=== PATIENT | female | born 1945 | race Caucasian/White ===

== ENCOUNTER 2017-02-24 15:58 | Emergency (ER) | payer MEDICARE, OTHER ==
[~2017-02-24] VITALS: Ht 160 cm; Wt 84.0 kg
[2017-02-24 16:05] VITALS: BP 142/81; PULSE 62; RESP 15; TEMP 98.1; O2SAT 97
[2017-02-24] MEDS ORDERED: SODI325T PO (16:23)
[2017-02-24] MEDS ORDERED: COZA25TA PO (16:23)
[2017-02-24] MEDS ORDERED: GABA300C5 PO (16:23)
[2017-02-24] MEDS ORDERED: METO25TA3 PO (16:23)
[2017-02-24] MEDS ORDERED: PROT40TA PO (16:23)
[2017-02-24] MEDS ORDERED: SYNT88TA PO (16:23)
--- NOTE | 2017-02-24 16:47 | PD ---
HPI Chief Complaint: Fall Time Seen by Provider: 16:38 Travel History International Travel<30 days: No Contact w/Intl Traveler<30days: No Traveled to known affect area: No History of Present Illness HPI 71-year-old female presents to the emergency room for evaluation of multiple complaints after slip and fall one hour prior to arrival. Patient slipped on a wet floor and fell to the right landing on her right arm before striking her head. There was no loss of consciousness. Patient is unsure whether she had an outstretched arm or landed directly on her shoulder reports pain in the shoulder, wrist, and right anterior ribs. Pain is worsened with range of motion. States she has weakness in her thumb. Denies headache, nausea, vomiting, neck pain, back pain, hip pain, upper or lower extremity paresthesias , or loss of bowel or bladder control. Patient has been ambulatory since falling. She took Tylenol prior to coming to the emergency room. She is not on blood thinners. PFSH Past Medical History Hypertension: Yes Renal Failure: Yes Thyroid Disease: Yes Tetanus Vaccination: > 5 Years Influenza Vaccination: Yes Past Surgical History Abdominal Surgery: Yes (kidney removed, ovary removed) Appendectomy: Yes Cholecystectomy: Yes Hysterectomy: Yes Tonsillectomy: Yes Social History Alcohol Use: No Tobacco Use: No Substance Use: No Allergies-Medications (Allergen,Severity, Reaction): Coded Allergies: No Known Allergies (Unverified , 02/24/17) Reported Meds & Prescriptions Reported Meds & Active Scripts Active Reported Protonix (Pantoprazole Sodium) 40 Mg Tab 40 Mg PO DAILY Gabapentin 300 Mg Cap 300 Mg PO BID Sodium Bicarbonate 325 Mg Tab 325 Mg PO TIDPC Synthroid (Levothyroxine Sodium) 88 Mcg Tab 88 Mcg PO DAILY Metoprolol Tartrate 25 Mg Tab 25 Mg PO BID Cozaar (Losartan Potassium) 25 Mg Tab 25 Mg PO DAILY Review of Systems Except as stated in HPI: all other systems reviewed are Neg Physical Exam Narrative GENERAL: Well-nourished, well-developed female in no acute distress. Afebrile. Ambulatory. SKIN: Focused skin assessment warm/dry. No beavers sign or raccoon eyes. HEAD: Normocephalic. Atraumatic. EYES: No scleral icterus. No injection or drainage. NECK: Supple, trachea midline. No JVD or lymphadenopathy. EARS: Bilateral pinnae and external canals appear within normal limits. Bilateral tympanic membranes without erythema, dullness or perforation. No hemotympanum. CARDIOVASCULAR: Regular rate and rhythm without murmurs, gallops, or rubs. RESPIRATORY: Breath sounds equal bilaterally. No accessory muscle use. CHEST: Tenderness to palpation right anterior rib #5. No deformity or crepitance. No retractions or use of accessory muscles. NEUROLOGICAL: Awake and alert. Cranial nerves II through XII intact. Motor and sensory grossly within normal limits. Five out of 5 muscle strength in all muscle groups. Normal speech. EXTREMITY: Right shoulder tenderness to palpation in the anterior humeral head. 2+ radial pulse. No obvious edema. No obvious deformity. Data Data Last Documented VS Vital Signs Date Time Temp Pulse Resp B/P Pulse Ox O2 Delivery O2 Flow Rate FiO2 02/24/17 16:05 98.1 62 15 142/[address] Brain W/O Iv Contrast(Rout) (02/24/17 ) Shoulder, Complete (>2vws) (02/24/17 ) Wrist, Complete ([id number]) (02/24/17 ) Ribs, Uni (W/Exp Cxr-Min 3vw) (02/24/17 ) ^ Red Bandage (02/24/17 17:26) MDM Medical Decision Making Medical Screen Exam Complete: Yes Emergency Medical Condition: Yes Medical Record Reviewed: Yes Differential Diagnosis Fracture, sprain, strain, spasm, contusion Narrative Course 71-year-old female presents to the emergency room for evaluation of multiple complaints after slip and fall 1 hour prior to arrival. Patient slipped on water and fell to her primary landing on her right arm before striking her head. There was no loss of consciousness. She denies headache, nausea, and vomiting. She is not on blood thinners. Physical exam is reassuring. No focal neurological deficits. No hemotympanum, beavers sign, or raccoon eyes. No midline tenderness the entire spine. Right upper extremity is neurovascular intact with 2+ radial pulse. Range of motion secondary to pain in the shoulder and wrist. Right anterior rib fish bin tender to palpation of the rib #5. No crepitus or obvious deformity. Lung sounds clear and equal bilaterally. CT of the brain is negative. X-ray of the shoulder, ribs, and wrist are negative. Red wrap placed on wrist. Patient discharged with orthopedic instructions and told to follow-up the primary care physician and return for worsening symptoms. She understands and agrees to plan. Diagnosis Primary Impression: Rib contusion Qualified Code: S20.211A - Rib contusion, right, initial encounter Additional Impressions: Shoulder pain Qualified Code: M25.511 - Acute pain of right shoulder Wrist pain Qualified Code: M25.531 - Wrist pain, right Referrals: Primary Care Physician Patient Instructions: Contusion in Adults (ED), General Instructions Additional Instructions: Rest and drink plenty of fluids. Use Red wrap as needed for pain and rest. Make sure you continue to take deep breaths to prevent pneumonia. Take Tylenol as directed, as needed for pain. Apply ice to the affected area for 20 minutes at a time, as needed for pain and swelling. Follow-up with a primary care physician. Return to the emergency room for worsening symptoms. Med/Other Pt SpecificInfo: Prescription(s) given Disposition: 01 DISCHARGE HOME Condition: Stable Talisha Palencia Feb 24, 2017 16:47
--- NOTE | 2017-02-24 17:09 | RADRPT ---
EXAM DATE/TIME: 02/24/2017 16:53 [facility] COMPARISON: No previous studies available for comparison. INDICATIONS : Trauma. Fell and hit head. RADIATION DOSE: 64.76 CTDIvol (mGy) MEDICAL HISTORY : Renal failure, chronic. Hypertension. Hypothyroidism. SURGICAL HISTORY : Appendectomy. Cholecystectomy.Nephrectomy, right.Hysterectomy. ENCOUNTER: Initial ACUITY: 1 day PAIN SCALE: 0/10 LOCATION: cranial TECHNIQUE: Multiple contiguous axial images were obtained of the head. Using automated exposure control and adj ustment of the mA and/or kV according to patient size, radiation dose was kept as low as reasonably a chievable to obtain optimal diagnostic quality images. DICOM format image data is available electro nically for review and comparison. FINDINGS: CEREBRUM: The ventricles are normal for age. No evidence of midline shift, mass lesion, hemorrhage or acute in farction. No extra-axial fluid collections are seen. POSTERIOR FOSSA: The cerebellum and brainstem are intact. The 4th ventricle is midline. The cerebellopontine angle i s unremarkable. EXTRACRANIAL: The visualized portion of the orbits is intact. SKULL: The calvaria is intact. No evidence of skull fracture. CONCLUSION: Normal examination for a patient of this age. Owen Guerrero MD on February 24, 2017 at 17:06 Board Certified Radiologist. This report was verified electronically.
--- NOTE | 2017-02-24 17:18 | RADRPT ---
EXAM DATE/TIME: 02/24/2017 16:42 [facility] COMPARISON: No previous studies available for comparison. INDICATIONS : Right posterior rib pain post fall. MEDICAL HISTORY : None. SURGICAL HISTORY : Nephrectomy, right. ENCOUNTER: Initial ACUITY: 1 day PAIN SCORE: 5/10 LOCATION: Right posterior ribs FINDINGS: Multiple views of the right ribs were performed. There is no evidence of displaced fracture. No keyur tructive lesions or areas of periosteal thickening are seen. Expiratory view of the chest is negativ e for pneumothorax. The mediastinal structures are midline. CONCLUSION: 1. No focal consolidation or significant effusion. No pneumothorax. Mildly tortuous aorta. No acute r ib fracture identified. Owen Guerrero MD on February 24, 2017 at 17:11 Board Certified Radiologist. This report was verified electronically.
--- NOTE | 2017-02-24 17:19 | RADRPT ---
EXAM DATE/TIME: 02/24/2017 16:52 [facility] COMPARISON: No previous studies available for comparison. INDICATIONS : Right shoulder pain post fall. MEDICAL HISTORY : None. SURGICAL HISTORY : Nephrectomy, right. ENCOUNTER: Initial ACUITY: 1 day PAIN SCORE: 8/10 LOCATION: Right upper extremity FINDINGS: Multiple view examination of the right shoulder demonstrates no evidence of fracture or dislocation. The glenohumeral and acromioclavicular joints are maintained. There is normal range of motion betwe en internal and external rotation. Bony mineralization is normal. CONCLUSION: Unremarkable examination of the right shoulder. Owen Guerrero MD on February 24, 2017 at 17:16 Board Certified Radiologist. This report was verified electronically.
--- NOTE | 2017-02-24 17:23 | RADRPT ---
EXAM DATE/TIME: 02/24/2017 16:56 [facility] COMPARISON: No previous studies available for comparison. INDICATIONS : Right wrist pain post fall. MEDICAL HISTORY : None. SURGICAL HISTORY : Nephrectomy, right. ENCOUNTER: Initial ACUITY: 1 day PAIN SCORE: 5/10 LOCATION: Right upper extremity FINDINGS: Three view examination of the right wrist demonstrates no soft tissue swelling, dislocation, or fract ure. The carpal bones are in normal alignment. The joint spaces are maintained. Bony mineralizatio n is normal. CONCLUSION: Normal examination for a patient of this age. Owen Guerrero MD on February 24, 2017 at 17:20 Board Certified Radiologist. This report was verified electronically.
== END 2017-02-24 17:40 | disposition home or self-care (01) ==
LOC: PHEFT 15:58
DX: S20.211A Contusion of right front wall of thorax, initial encounter (principal); M25.511 Pain in right shoulder; M25.531 Pain in right wrist; I10 Essential (primary) hypertension; N19 Unspecified kidney failure; E07.9 Disorder of thyroid, unspecified; W01.0XXA Fall on same level from slipping, tripping and stumbling without subsequent striking against object, initial encounter
CPT/HCPCS: 70450; 71101; 73030; 73110